=== PATIENT | female | born 1955 | race Caucasian/White ===

== ENCOUNTER 2017-10-24 11:07 | Emergency (ER) | payer BC ==
[2017-10-24] MEDS ORDERED: ONDANSETRON ODT 8 MG TAB ONE (11:12)
[2017-10-24] MEDS ORDERED: MORPHINE SULFATE INJ 10 MG/ML VIAL ONE (11:16)
[2017-10-24] MEDS ORDERED: SUCRALFATE 1 GM/10 ML 1 GM UD PO ONE (11:17)
[2017-10-24] MEDS ORDERED: ONDANSETRON ODT 8 MG TAB SL ONE (11:17)
[2017-10-24] MEDS ORDERED: PROMETHAZINE HCL INJ 25 MG in SODIUM CHLORIDE 0.9% 50ML 50 ML IVPB ONE (11:17)
[2017-10-24] MEDS ORDERED: MORPHINE SULFATE INJ 10 MG/ML VIAL IV ONE (11:17)
[2017-10-24] MEDS ORDERED: PROMETHAZINE HCL INJ 25 MG/ML VIAL ONE (12:20)
[2017-10-24] MEDS ORDERED: SODIUM CHLORIDE 0.9% 50ML 50 ML ONE (12:20)
[2017-10-24] MEDS ORDERED: SUCRALFATE 1 GM/10 ML 1 GM UD ONE (12:23)
--- NOTE | 2017-10-24 12:33 | RAD ---
PROCEDURE: Abdomen Series Clinical History: abd pain, coffee ground emesis, liver dz Indication: Same as above Comparison: None Technique: 1.0 views of the abdomen and pelvis and 1.0 view of the chest were done. Findings: There is no gross evidence of free air in the abdomen or the pelvis . The small and large bowel gas pattern does not show any evidence of obstruction, ileus or bowel wall thickening. There is no visualization of radiopaque calculi in the outline of the urinary tract. The visualized lung cano are unremarkable. There is evidence of prior surgery in the visualized lower cervical spine Cardiomediastinal silhouette is unremarkable. Impression: There are no acute findings in the chest, abdomen and pelvis Location of Interpretation: [id number] Electronically signed by: Cecil Curry MD 10/24/2017 12:31 PM [facility] Workstation: [id number]
[2017-10-24] MEDS ORDERED: SODIUM CHLORIDE 0.9% 1000ML 500 ML IVS ONE ×2 (12:49→15:17)
[2017-10-24] MEDS ORDERED: SODIUM CHLORIDE 0.9% 1000ML 1,000 ML ONE ×2 (14:27→17:05)
[2017-10-24] MEDS ORDERED: diphenhydrAMINE HCL 12.5 MG/5 ML UD PO ONE (14:42)
[2017-10-24] MEDS ORDERED: methylPREDNISolone SODIUM SUC 40 MG/ML VIAL IV ONE (14:42)
[2017-10-24] MEDS ORDERED: PANTOPRAZOLE SODIUM IV 40 MG VIAL IV ONE (15:06)
--- NOTE | 2017-10-24 15:09 | ED.PDOC ---
History of Present Illness - General Time Seen by Provider: 10/24/17 11:17 Source: patient Exam Limitations: no limitations - History of Present Illness Initial Comments: the patient is a 62-year-old female brought in by her family member secondary to severe abdominal pain with some coffee ground emesis. The patient has apparently been having some abdominal pain and vomiting for the better part of the night. No fevers. This has happened before. 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 She has apparently been treated for the hepatitis C according to family members. She apparently does have some chronic ascites for which she takes diuretics and also some hepatic encephalopathy for which she takes rifaximin. She sees a Dr. Rojas at [facility] in [place]. She has had multiple upper GI bleeds in the past that had to be worked on. She has been unable to take numerous of her chronic pain medications overnight and is obviously having some withdrawals as well. She has been unable to take her metoprolol as well. Timing/Duration: 24 hours Severity: moderate Improving Factors: nothing Worsening Factors: nothing Associated Symptoms: loss of appetite, malaise, nausea/vomiting, weakness Review of Systems - Review of Systems Constitutional: States: malaise EENTM: States: no symptoms reported Respiratory: States: no symptoms reported Cardiology: States: no symptoms reported Gastrointestinal/Abdominal: States: abdominal pain, nausea, vomiting Genitourinary: States: no symptoms reported Musculoskeletal: States: no symptoms reported Skin: States: no symptoms reported Neurological: States: other - the patient is drowsy possibly from mild hepatic encephalopathy but also likely because she was at the better part of the night Endocrine: States: excessive sweating All other Systems: No Change from Baseline Physical Exam - Physical Exam General Appearance: Other - the patient is drowsy. She is rolling around on the bed holding her abdomen. She is very anxious. She does understand what's going on and recognizes her family members. She is a little bit confused on the date. Eye Exam: bilateral normal Ears, Nose, Throat: hearing grossly normal, normal ENT inspection, normal pharynx Neck: full range of motion, supple Respiratory: normal breath sounds, no respiratory distress, no accessory muscle use Cardiovascular/Chest: normal peripheral pulses, no edema, tachycardia - sinus tachycardia Peripheral Pulses: radial,right: 2+, radial,left: 2+, dorsalis pedis,right: 2+, dorsalis pedis,left: 2+ Gastrointestinal/Abdominal: soft, other - the patient does have some epigastric discomfort palpation. No definite rebound or peritoneal signs. Rectal Exam: deferred Back Exam: other - the patient has no new back pain. Extremity: normal range of motion, non-tender, no pedal edema, no calf tenderness, normal capillary refill Neurologic: sap portal developer II-XII nml as tested, alert, normal mood/affect - with the exception that she is drowsy and anxious Skin Exam: normal color Progress - Progress Progress: 10/24/17 15:17 the patient is a 62-year-old female presenting to the emergency room secondary to nausea and vomiting with coffee-ground emesis throughout the night. she does have a significant history of end-stage liver disease with frequent upper GI bleeds in the past. The patient does appear to be having a small upper GI bleed based on her blood work and history anyway. The patient also was in withdrawal from not having her opiate pain medications. She is doing much better after a dose of anti-emetics and a dose of opiate pain medications. She has not thrown up since her arrival here. she received a dose of Carafate, Protonix and Maalox. Her hemoglobin and hematocrit have dropped slightly however inappropriately since her arrival. 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 The patient is stable at this time. We were planning on giving the patient 1 unit of packed red blood cells however due to a malfunction of laboratory equipment we are unable to type and match blood specifically to her. This will need to be done at the receiving facility. The patient will be receiving a little more IV fluids. Transfer for higher level of care and GI evaluation. Family has been consulted and informed. - Results/Orders Results/Orders: Laboratory Tests 10/24/17 10/24/17 10/24/17 11:24 11:24 11:24 WBC 11.5 H RBC 2.46 L Hgb 8.6 L Hct 25.2 L MCV 102.6 H MCH 34.9 H MCHC 34.3 RDW 13.5 Plt Count 171 MPV 9.2 Absolute Neuts (auto) 8.90 H Absolute Lymphs (auto) 1.90 Absolute Monos (auto) 0.60 Absolute Eos (auto) 0.00 Absolute Basos (auto) 0.10 Neutrophils % 77.6 Lymphocytes % 16.4 L Monocytes % 5.4 Eosinophils % 0.1 L Basophils % 0.5 PT 13.7 H INR 1.210 PTT (SP) 29.3 Sodium 142 Potassium 4.4 Chloride 109 Carbon Dioxide 21 Anion Gap 16.4 BUN 37 H Creatinine 0.68 BUN/Creatinine Ratio 54.4 H Random Glucose 133 H Serum Osmolality 293.7 Calcium 9.7 Magnesium 1.9 Total Bilirubin 0.7 AST 36 ALT 29 Alkaline Phosphatase 65 Creatine Kinase 156 H CK-MB (CK-2) 4.2 CK-MB (CK-2) % 2.69 Troponin I 0.03 Serum Total Protein 6.1 L Albumin 3.2 Globulin 2.9 Albumin/Globulin Ratio 1.1 Amylase 32 Lipase 33 Crossmatch 10/24/17 10/24/17 14:26 15:05 WBC 11.4 H RBC 2.27 L Hgb 8.0 L Hct 22.9 L MCV 100.9 H MCH 35.2 H MCHC 34.9 RDW 13.2 Plt Count 164 MPV 8.8 Absolute Neuts (auto) 9.20 H Absolute Lymphs (auto) 1.50 Absolute Monos (auto) 0.50 Absolute Eos (auto) 0.00 Absolute Basos (auto) 0.10 Neutrophils % 81.1 H Lymphocytes % 13.5 L Monocytes % 4.8 Eosinophils % 0.0 L Basophils % 0.6 PT INR PTT (SP) Sodium Potassium Chloride Carbon Dioxide Anion Gap BUN Creatinine BUN/Creatinine Ratio Random Glucose Serum Osmolality Calcium Magnesium Total Bilirubin AST ALT Alkaline Phosphatase Creatine Kinase CK-MB (CK-2) CK-MB (CK-2) % Troponin I Serum Total Protein Albumin Globulin Albumin/Globulin Ratio Amylase Lipase Crossmatch See Detail acute abdominal series shows no acute pathology. No obstruction. No ileus. No free air. EKG showssinus tachycardia rate 148 bpm. The patient is agitated during this and when she relaxes it does slow down to the 120s. No acute ST segment changes definitive for ischemia. Normal axis. Departure - Departure Clinical Impression: Acute upper GI bleed, Opiate withdrawal Disposition: Transfer to Hospital Transfer to Outside Facility - Transfer Information Accepting Provider:: dr lackey Accepting Facility: [facility] Reason for Transfer: required specialist not available
[2017-10-24 16:03] VITALS: TEMP 97.9
[2017-10-24] MEDS ORDERED: methylPREDNISolone SODIUM SUC 40 MG/ML VIAL ONE (17:04)
[2017-10-24] MEDS ORDERED: PANTOPRAZOLE SODIUM IV 40 MG VIAL ONE (17:05)
[2017-10-24 18:16] VITALS: BP 126/65; O2SAT 98
== END 2017-10-24 17:20 | disposition short-term general hospital (02) ==
LOC: ER 11:07
DX: K92.2 Gastrointestinal hemorrhage, unspecified (principal); F11.23 Opioid dependence with withdrawal; R00.0 Tachycardia, unspecified; K74.60 Unspecified cirrhosis of liver; B19.20 Unspecified viral hepatitis C without hepatic coma
CPT/HCPCS: 36415; 74020; 80053; 82140; 82150; 82550; 82553; 83690; 83735; 84484; 85025; 85610; 85730; 93005; A4216; J1030; J2270; J2550; J7030

== ENCOUNTER → 2017-11-17 | Outpatient (CLI) | payer BC | END | disposition home or self-care (01) | LOC: LAB.O 12:02 | PROVIDERS: ATTEND Internal Medicine Hepatology | DX: I85.01 Esophageal varices with bleeding (principal); K70.30 Alcoholic cirrhosis of liver without ascites ==

== ENCOUNTER → 2017-11-27 | Outpatient (CLI) | payer BC ==
--- NOTE | 2017-11-30 08:15 | MRI ---
EXAM DESCRIPTION: Abdomen w/wo Contrast CLINICAL HISTORY: 62 years Female, CIRRHOSIS COMPARISON: None. TECHNIQUE: Multiplanar multisequence examination of the abdomen before contrast enhancement with multiphase contrast enhanced examination of the liver. FINDINGS: Precontrast imaging demonstrates modest enlargement of the lateral segment left lobe of the liver with a nodular heterogeneous appearance of the right lobe of the liver with mild abdominal ascites surrounding the liver and gallbladder fossa. Liver is inhomogeneous with the area adjacent to the gallbladder demonstrating lower signal intensity on fat saturated imaging and higher signal intensity on non fatsaturated imaging suggesting focal fatty sparing of this region of the liver. Postcontrast there is slight heterogeneous enhancement within the liver but a focal arterial enhancing mass to strongly suggest or confirm a hepatocellular carcinoma is not identified. Correlation with tumor markers including a serum alpha-fetoprotein is recommended. Mild splenomegaly is present with no significant ascites noted in the left upper quadrant. The pancreas arterially enhances without focal mass. Normal enhancement of the kidneys and spleen is noted and the adrenal glands are small and normal. The splenic vein and portal vein and superior mesenteric vein are confirmed patent. Significant abdominal or esophageal varices are not identified. Retroperitoneal adenopathy is not apparent. IMPRESSION: 1. Cirrhosis of the liver with abnormal architecture and heterogeneity with macrolobulation of the right lobe and mild enlargement of the left lobe and mild upper abdominal ascites. 2. Mild splenomegaly. 3. A focal arterial enhancing mass within the liver on multiphase enhanced examination to suggest hepatocellular carcinoma is not identified. Correlation with tumor markers and serum alpha-fetoprotein is recommended. 4. Heterogeneous liver with apparent focal fatty sparing adjacent to the gallbladder fossa in the right lobe of the liver. Patency of the portal vein and splenic vein and superior mesenteric vein. Electronically signed by: Silvestre Causey MD 11/30/2017 8:14 AM JUNIOR ACCOUNT MANAGER
== END ==
LOC: MRI 08:06
PROVIDERS: ATTEND Internal Medicine Hepatology
DX: K70.30 Alcoholic cirrhosis of liver without ascites (principal); R16.1 Splenomegaly, not elsewhere classified; R16.0 Hepatomegaly, not elsewhere classified

== ENCOUNTER 2017-12-19 18:31 | Emergency (ER) | payer BC ==
--- NOTE | 2017-12-19 18:53 | ED.PDOC ---
History of Present Illness - General Chief Complaint: GI Problem Stated Complaint: vomiting Time Seen by Provider: 12/19/17 18:52 Source: patient Exam Limitations: no limitations - History of Present Illness Initial Comments: Justin Loyd 62 y/o female stated she had coffee ground emesis about 1630 hour today at home.She has history of esophageal varices from hep c cirrhosis which she had undergone treatment as well as history of alcoholism and had been sober the last 3 years.Had EGD done by Dr. Rojas 11/19/2017. Timing/Duration: 4-6 hours Severity: moderate Improving Factors: nothing Worsening Factors: nothing Associated Symptoms: nausea/vomiting Allergies/Adverse Reactions: Allergies NO KNOWN ALLERGY Allergy (Verified 12/19/17 18:54) Review of Systems - Review of Systems Constitutional: States: no symptoms reported EENTM: States: no symptoms reported Respiratory: States: no symptoms reported Cardiology: States: no symptoms reported Gastrointestinal/Abdominal: States: see HPI Genitourinary: States: no symptoms reported Musculoskeletal: States: no symptoms reported Skin: States: no symptoms reported Hematologic/Lymphatic: States: see HPI, anemia All other Systems: Reviewed and Negative, No Change from Baseline Past Medical History (General) - Patient Medical History Hx Stroke: No Hx Congestive Heart Failure: No Hx Hypertension: Yes Hx Gastroesophageal Reflux: Yes Hx Hepatitis C: Yes Hx Other PMH: Yes - esophageal varices Surgical History: other - spine-neck/lumbar; - Vaccination History Hx Influenza Vaccination: - unknown Hx Pneumococcal Vaccination: - unknown - Social History Hx Tobacco Use: Yes Hx Alcohol Use: Yes - Sober since 2013 Family Medical History - Family History Mother Family History: No Known Living Status: Still Living Hx Family Diabetes: Yes - mom Physical Exam - Physical Exam General Appearance: Alert, Comfortable, No apparent distress Eye Exam: bilateral normal Ears, Nose, Throat: hearing grossly normal, normal ENT inspection Neck: non-tender, full range of motion, supple Respiratory: lungs clear, normal breath sounds, no respiratory distress Cardiovascular/Chest: regular rate, rhythm, no murmur Peripheral Pulses: radial,right: 2+, radial,left: 2+ Gastrointestinal/Abdominal: non tender, soft, no organomegaly Rectal Exam: other - had tarry stool when she had bm noted by the nurse Extremity: non-tender, no pedal edema, no calf tenderness Neurologic: alert, oriented x 3 Skin Exam: normal color Lymphatic: no adenopathy Progress - Progress Progress: 12/19/17 20:34 Last Vital Signs Temp 97.9 F 12/19/17 20:00 Pulse 90 12/19/17 20:00 Resp 18 12/19/17 20:00 BP 123/79 12/19/17 20:00 Pulse Ox 99 12/19/17 20:00 12/20/17 00:40 Discuss needing for emergency blood transfusion on the patient and agreed with plan - Results/Orders Results/Orders: 12/19/17 19:00 EKG STAT 12/19/17 20:30 Octreotide Acetate [SandoSTATIN] 500 mcg Sodium Chloride 0.9% 100Ml [NS (NACL 0.9%) 100ml] 100 ml IVPB PRN 12/19/17 22:06 AMMONIA Stat Laboratory Results - last 24 hr 12/19/17 12/19/17 12/19/17 17:15 19:20 19:20 WBC 9.4 RBC 2.80 L Hgb 9.4 L Hct 27.9 L MCV 99.9 H MCH 33.5 H MCHC 33.5 RDW 16.0 H Plt Count 198 MPV 9.0 Absolute Neuts (auto) 7.10 H Absolute Lymphs (auto) 1.60 Absolute Monos (auto) 0.70 Absolute Eos (auto) 0.00 Absolute Basos (auto) 0.00 Neutrophils % 75.2 Lymphocytes % 17.1 L Monocytes % 7.1 Eosinophils % 0.2 L Basophils % 0.4 PT 14.0 H INR 1.240 PTT (SP) 29.1 Sodium 140 Potassium 4.6 Chloride 111 Carbon Dioxide 21 Anion Gap 12.6 BUN 38 H Creatinine 0.59 L BUN/Creatinine Ratio 64.4 H Random Glucose 109 H Serum Osmolality 289.0 Calcium 10.0 Magnesium 1.9 Total Bilirubin 0.9 Direct Bilirubin 0.2 Indirect Bilirubin 0.7 AST 32 ALT 30 Alkaline Phosphatase 73 Creatine Kinase 83 CK-MB (CK-2) 2.6 CK-MB (CK-2) % Not Reportable Troponin I 0.04 Serum Total Protein 6.5 Albumin 3.2 Lipase 35 Urine Color Yellow Urine Appearance Clear Urine pH 5.0 Ur Specific [place] 1.010 Urine Protein Negative Urine Glucose (UA) Negative Urine Ketones Negative Urine Blood Negative Urine Nitrite Negative Urine Bilirubin Negative Urine Urobilinogen 0.2 Ur Leukocyte Esterase Negative Urine RBC 0-1 Urine WBC 0-1 Ur Epithelial Cells 0-1 Urine Bacteria 0 Urine Mucus Trace Patient ABO/Rh A POSITIVE Antibody Screen Negative - EKG/XRAY/CT EKG: Sinus, nonspecific ST T wave Chg Comments: HR- 87 XRAY: abdomen - no acute abnormality Departure - Departure Clinical Impression: Anemia due to acute blood loss Esophageal varix bleeding Qualifiers: Esophageal varices type: secondary Qualified Code(s): I85.11 - Secondary esophageal varices with bleeding Hepatic cirrhosis Qualifiers: Hepatic cirrhosis type: unspecified hepatic cirrhosis Ascites presence: without ascites Qualified Code(s): K74.60 - Unspecified cirrhosis of liver Hematemesis/vomiting blood Qualifiers: Nausea presence: without nausea Qualified Code(s): K92.0 - Hematemesis Time of Disposition: 00:40 Disposition: Transfer to Hospital Condition: Fair Departure Forms: Patient Portal Self Enrollment Transfer to Outside Facility - Transfer Information Accepting Facility: [facility] Reason for Transfer: required specialist not available
[2017-12-19] MEDS ORDERED: SODIUM CHLORIDE 0.9% 1000ML 1,000 ML IVS ONE (18:56)
--- NOTE | 2017-12-19 19:53 | RAD ---
EXAM DESCRIPTION: Abdomen Flat Upright (accession [id number]), Chest,1 View (accession [id number]) CLINICAL HISTORY: vomiting COMPARISON: None FINDINGS: Frontal view of the chest and supine and upright images of the abdomen were submitted. Cardiac silhouette is within normal limits. There is no focal parenchymal or pleural disease. There is no free air in the abdomen. There is no evidence of bowel obstruction. IMPRESSION: No acute abnormalities. Electronically signed by: Demarco Madison MD 12/19/2017 7:51 PM CRAFT MANAGER
--- NOTE | 2017-12-19 19:53 | RAD ---
EXAM DESCRIPTION: Abdomen Flat Upright (accession [id number]), Chest,1 View (accession [id number]) CLINICAL HISTORY: vomiting COMPARISON: None FINDINGS: Frontal view of the chest and supine and upright images of the abdomen were submitted. Cardiac silhouette is within normal limits. There is no focal parenchymal or pleural disease. There is no free air in the abdomen. There is no evidence of bowel obstruction. IMPRESSION: No acute abnormalities. Electronically signed by: Demarco Madison MD 12/19/2017 7:51 PM BARN[employer]
[2017-12-19] MEDS ORDERED: ONDANSETRON INJ 4 MG/2 ML VIAL IV ONE (20:30)
[2017-12-19] MEDS ORDERED: OCTREOTIDE ACETATE 500 MCG in SODIUM CHLORIDE 0.9% 100ML 100 ML IVPB SCH (20:30)
[2017-12-19] MEDS ORDERED: PANTOPRAZOLE SODIUM IV 40 MG VIAL IV ONE (20:30)
[2017-12-19] MEDS ORDERED: SODIUM CHLORIDE 0.9% 500ML 500 ML IVS ONE (20:31)
[2017-12-19] MEDS ORDERED: OCTREOTIDE ACETATE 100 MCG/ML VIAL ONE ×2 (21:00→21:07)
[2017-12-19] MEDS ORDERED: SODIUM CHLORIDE 0.9% 100ML 100 ML IVPB ONE (21:07)
[2017-12-19] MEDS ORDERED: LACTULOSE SYRUP 20 GM/30 ML UD PO ONE (23:16)
[2017-12-20] MEDS ORDERED: diphenhydrAMINE HCL 50 MG/ML VIAL IV ONE (00:30)
[2017-12-20] MEDS ORDERED: SODIUM CHLORIDE 0.9% 1000ML 1,000 ML ONE (00:32)
[2017-12-20 00:52] VITALS: TEMP 99.6
[2017-12-20 00:54] VITALS: O2SAT 97
[2017-12-20 01:40] VITALS: BP 120/50
== END 2017-12-20 01:15 | disposition short-term general hospital (02) ==
LOC: ER 18:31
DX: K74.60 Unspecified cirrhosis of liver (principal); I85.11 Secondary esophageal varices with bleeding; D50.0 Iron deficiency anemia secondary to blood loss (chronic); I10 Essential (primary) hypertension
CPT/HCPCS: 36415; 71045; 74019; 80048; 80076; 81001; 82140; 82550; 82553; 83690; 84484; 85014; 85018; 85025; 85610; 85730; 86850; 86900; 86901; 86922; 93005; J1200; J2060; J2354; J2405; J7030; J7040; J7050; P9016

== ENCOUNTER → 2018-05-28 | Outpatient (CLI) | payer BC, OTHER ==
--- NOTE | 2018-06-23 16:55 | MRI ---
EXAM DESCRIPTION: Lumbar Spine w/o Contrast : Magnetic Resonance Imaging. CLINICAL HISTORY: CHRONIC LOW BACK PAIN COMPARISON: None available. TECHNIQUE: Multiplanar, multiple standard sequences, non contrast MRI, lumbar spine. Note: Interpretation delayed until today due to inadvertent cancellation of the order in the RIS. FINDINGS: Diffuse marrow reconversion from fatty to cellular marrow involving the lumbar spine and included sacrum. L5-S1: Grade 1 anterolisthesis with disc desiccation and disc space loss. Bilateral Modic type II endplate reactive changes. Posterior broad-based disc bulge impressing on the thecal sac. Minimal narrowing of the bilateral subarticular recesses. Partial fusion of the right facet joint with arthrosis in the left joint. Minimal hypertrophy of the bilateral flavum ligaments. Moderate narrowing of the left foramen and borderline stenosis of the right foramen. AP canal diameter 6 mm. Bilateral deformity of the pars interarticularis, more left than right. L4-5: Disc desiccation and minimal narrowing of the posterior space. Posterior broad-based 4 mm bulge of the disc abutting the thecal sac and the bilateral hypertrophied flavum ligaments. Minimal bilateral facet arthrosis. AP canal diameter 8 mm. Bilateral moderate foraminal narrowing. Minimal narrowing of the bilateral subarticular recesses. L3-4: Disc desiccation with disc space maintained. Posterior broad-based 4 to 5 mm disc bulge abutting the bilateral facet joints. Hypertrophy flavum ligaments abutting the posterior thecal sac with AP canal diameter 8 mm. Minimal narrowing of the bilateral subarticular recesses. Bilateral mild facet arthrosis. Bilateral mild to moderate foraminal narrowing L2-3: Minimal disc desiccation and tiny posterior bulge. Bilateral flavum ligament hypertrophy. Ligaments are abutting the posterior thecal sac with AP canal diameter 11 mm. Bilateral foramina are patent. L1-2: Minimal disc desiccation with no posterior bulge. Bilateral hypertrophied flavum ligaments abutting the posterior thecal sac. Mild to moderate canal narrowing. Facets are unremarkable. Bilateral foramina are patent. T12-L1: Normal signal in the disc and disc space preserved. Canal and foramina are patent. Posterior elements unremarkable. Schmorl's node in the superior T12 vertebral body with no significant marrow edema. T11-12 disc bulge almost abutting the cord. Bilateral T11-12 foraminal narrowing. Minimal mid lumbar dextroscoliosis. Paravertebral soft tissues minimal muscle atrophy and fatty replacement.. Vertebral bodies are not compressed at any level. IMPRESSION: 1. L5-S1 grade 1 anterolisthesis with bilateral L5 pars interarticulares deformity possibly spondylolysis. Posterior broad-based disc bulge impressing on the thecal sac. 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 This can result in abnormal biomechanics and be a source of low back pain. Moderate to severe canal stenosis. 2. Posterior broad-based L4-5 disc bulge. Minimal facet arthrosis. Mild to moderate canal stenosis. 3. Posterior broad-based L3-4 disc bulge with mild to moderate canal stenosis. Bilateral mild to moderate foraminal narrowing. Electronically signed by: Aly Ham MD 06/23/2018 4:53 PM CDT
== END ==
LOC: MRI 11:35
PROVIDERS: ATTEND General Practice
DX: M51.26 Other intervertebral disc displacement, lumbar region (principal); M43.17 Spondylolisthesis, lumbosacral region

== ENCOUNTER → 2018-06-07 | Outpatient (CLI) | payer BC, OTHER ==
--- NOTE | 2018-06-07 14:59 | US ---
EXAM DESCRIPTION: Abdomen,Complete CLINICAL HISTORY: cirrhosis COMPARISON: None Available. TECHNIQUE: Complete abdominal ultrasound FINDINGS: Visualized portions of the pancreas are unremarkable. No peripancreatic fluid. Bowel gas obscures some areas. Normal caliber of the aorta. Normal appearance of the inferior vena cava. Liver parenchyma is homogeneous in texture with normal echogenicity. No liver mass or intrahepatic bile duct dilatation. Lobulated surface of the liver is noted raising the question of scarring or cirrhosis. Correlate with other studies. Normal appearance of hepatic veins and portal vein. Gallbladder appears normal with no intraluminal stones. No gallbladder wall thickening. Common bile duct is normal in caliber measuring 6.4 mm. The right kidney measures 9.2 cm in length. Normal renal cortical echogenicity. The renal cortical thickness appears somewhat decreased at the upper pole. No right renal mass, shadowing stone or cyst. There is no hydronephrosis. Spleen is normal in size. No focal splenic lesion. The left kidney measures 9.8 cm in length. Normal renal cortical echogenicity. The renal cortical thickness appears normal. No left renal mass, shadowing stone or cyst. There is no hydronephrosis. IMPRESSION: Lobulated surface of the liver consistent with the clinical diagnosis of cirrhosis. Electronically signed by: Charles Whitt MD 06/07/2018 2:58 PM CDT
== END ==
LOC: US 08:59
PROVIDERS: ATTEND Internal Medicine Hepatology
DX: K70.30 Alcoholic cirrhosis of liver without ascites (principal); N28.9 Disorder of kidney and ureter, unspecified; E55.9 Vitamin D deficiency, unspecified; D64.9 Anemia, unspecified; I85.10 Secondary esophageal varices without bleeding

== ENCOUNTER → 2018-09-16 | Outpatient (CLI) | payer BC, OTHER | LOC: LAB.O 17:39 | PROVIDERS: ATTEND Internal Medicine Hepatology | DX: K70.30 Alcoholic cirrhosis of liver without ascites (principal) ==

== ENCOUNTER → 2018-12-15 | Outpatient (CLI) | payer BC, MEDICARE | LOC: LAB.O 08:47 | PROVIDERS: ATTEND Internal Medicine Hepatology | DX: K70.30 Alcoholic cirrhosis of liver without ascites (principal); I85.10 Secondary esophageal varices without bleeding; D64.9 Anemia, unspecified; N28.9 Disorder of kidney and ureter, unspecified; E55.9 Vitamin D deficiency, unspecified ==

== ENCOUNTER → 2018-12-27 | Outpatient (CLI) | payer BC, MEDICARE ==
--- NOTE | 2018-12-27 16:55 | US ---
EXAM DESCRIPTION: Abdomen,Complete: Ultrasound. CLINICAL HISTORY: CIRRHOSIS OF LIVER, RENAL INSUFFICIENCY COMPARISON: None Available. TECHNIQUE: Transabdominal scannin-dimensional and Doppler modes. FINDINGS: Gallbladder: Normal size with no intraluminal stones or sludge. Normal wall thickness 1 mm no edema. Nontender with transducer pressure. Common bile duct: 4 mm normal caliber. Liver: Decreased coarse dense heterogeneous echoes. Capsule is lobulated. Long axis of the right lobe 15.7 cm. Left lobe extends well into the left upper quadrant. Normal direction of flow of the hepatic vein and portal vein. No duct dilation. No ascites. Pancreas: Included segments with normal echogenicity. Duct not seen.. Abdominal aorta: Normal caliber from the proximal segment to the distal bifurcation. IVC: visualized; normal caliber. Spleen normal echogenicity; long axis measurement is 8.1 cm. No ascites in the lower quadrants of the abdomen. Kidneys were not evaluated. Right kidney: Long axis is 9.2 cm. Increased echogenicity, less than the liver. Cortical thickness 12 mm. No hydronephrosis. Prominent renal pyramids. Left kidney: 9.4 cm Long axis. Increased echogenicity. Cortical thickness 13 mm. No hydronephrosis. Prominent renal pyramids. IMPRESSION: 1. Enlarged liver with lobulated capsule and overall low-density consistent with subacute cirrhosis. No intrahepatic dilation. Vascularity normal direction. No enlarged ducts. No ascites. 2. Pancreas, gallbladder, and common bile duct unremarkable. Spleen is negative. 3. Appearance of kidneys consistent with clinical history. No hydronephrosis. Electronically signed by: Aly Ham MD 12/27/2018 4:52 PM HEAD OF ADVERTISING
--- NOTE | 2018-12-27 17:03 | US ---
EXAM DESCRIPTION: Doppler,Abdomen: ULTRASOUND. CLINICAL HISTORY: 63 years Female CIRRHOSIS COMPARISON: Grayscale ultrasound of the abdomen on this visit. TECHNIQUE: Transcutaneous scanning: Doppler modes. FINDINGS: Flow in the left hepatic vein is hepatofugal with RI of 0.22. Flow in the main hepatic vein is hepatofugal with RI 1.0. Flow in the right hepatic vein was hepatofugal but not measured. Flow in the portal vein was hepatopedal with RI 0.07. IMPRESSION: Flow in the hepatic and portal veins is in the correct physiologic direction. Electronically signed by: Aly Ham MD 12/27/2018 5:00 PM [facility]
== END ==
LOC: US 09:00
PROVIDERS: ATTEND Internal Medicine Hepatology
DX: K70.30 Alcoholic cirrhosis of liver without ascites (principal); I85.10 Secondary esophageal varices without bleeding; N28.9 Disorder of kidney and ureter, unspecified

== ENCOUNTER → 2019-05-31 | Outpatient (CLI) | payer MEDICARE, OTHER | LOC: GMAE 19:50 | PROVIDERS: ATTEND Family Medicine | DX: M25.561 Pain in right knee (principal); M25.562 Pain in left knee; G25.81 Restless legs syndrome ==

== ENCOUNTER → 2019-06-10 | Outpatient (CLI) | payer MEDICARE, OTHER ==
--- NOTE | 2019-06-10 13:59 | US ---
EXAM DESCRIPTION: Abdomen,Complete: Ultrasound. CLINICAL HISTORY: CIRRHOSIS OF LIVER,RENAL INSUFFICIENCY COMPARISON: Complete abdominal ultrasound 01/24/2019. TECHNIQUE: Transabdominal scanning: grayscale and Doppler modes. FINDINGS: Gallbladder: Normal size. No intraluminal stones or sludge. Wall thickness 1.7 cm normal with no surrounding fluid. Nontender with transducer pressure. Common bile duct: 4.1 mm normal caliber. Liver: Increased echogenicity. Lobulated capsule. Long axis of right lobe 14.5 cm. Normal caliber portal vein and normal direction of flow. No Pancreas: Normal echogenicity. Pancreatic duct not seen.. Abdominal aorta: Normal caliber from the proximal segment to the distal bifurcation. IVC: visualized; normal caliber. Spleen normal echogenicity; long axis measurement is 9.9 cm. Right kidney: 9.2 cm long axis. 10 mm cortical thickness with increased echogenicity less than that of the liver. No hydronephrosis, no echogenic stones, no perirenal fluid. Left kidney: 9.4 cm long axis with 13 mm cortical thickness. Increased echogenicity, less than that of the liver. No hydronephrosis, no echogenic stones, no perirenal fluid. IMPRESSION: 1. Cirrhotic liver not enlarged with typical appearance of the capsule for this disease. Ducts caliber normal and normal caliber and flow direction of the portal vein. No ascites. 2. Minimal ultrasound appearance of the gallbladder, common bile duct, pancreas, and spleen. IVC and abdominal aorta normal caliber. 3. Bilateral kidneys are small with cortical thinning and increased echogenicity, less than that of the liver. Most likely chronic renal disease. No hydronephrosis. Electronically signed by: Aly Ham MD 06/10/2019 1:57 PM CDT
== END ==
LOC: US 08:45
PROVIDERS: ATTEND Internal Medicine Hepatology
DX: K74.69 Other cirrhosis of liver (principal); N28.9 Disorder of kidney and ureter, unspecified

== ENCOUNTER → 2019-09-06 | Outpatient (CLI) | payer OTHER ==
--- NOTE | 2019-09-08 09:31 | MRI ---
EXAM DESCRIPTION: Lumbar Spine w/wo Contrast: Magnetic Resonance Imaging. CLINICAL HISTORY: radiculopathy COMPARISON: MRI scan lumbar spine without contrast 28 May 2018. TECHNIQUE: Multiplanar, MRI, multiple standard sequences, without and with 5 kg/mL Gadolinium IV contrast, lumbar spine. No adverse reactions. FINDINGS: L5-S1: Disc desiccation and disc space loss. Anterior and bilateral moderate endplate reactive changes. Minimal enhancement in the posterior midline disc. Posterior tiny disc bulge. Grade 1 anterolisthesis 2 to 3 mm is stable. AP canal diameter 5.5 mm stable since the prior study. Hypertrophic left facet arthrosis and thickening of the ligament. Absence of the right facet joint and deformity of the right lamina and adjacent soft tissues is again noted. This enhancement is posterior to the exiting right L5 nerve, above the anterior right sacrum, in the foramen which is stenotic. Disc osteophyte complex encroaching on the left foramen which is moderately narrowed with no abnormal enhancement. Bilateral narrowing of the subarticular recesses abutting the bilateral S1 nerves. Circumscribed hyperintense T1 and T2 posterior hemangioma L5. Stable since the prior study. L4-L5: Minimal disc desiccation with disc space preserved. Posterior broad-based disc bulge 5 mm. Bilateral hypertrophic facet arthrosis more on the left with ligament thickening impressing on the bilateral thecal sac more on the left. AP canal diameter 8 mm. Minimal enhancement in the facets. Moderate endplate reaction anterior right. Stable since the prior study. Moderate right foraminal narrowing and moderate to severe left foraminal narrowing. No other abnormal enhancement. Circumscribed hyperintense T1 and T2 hemangioma posterior L4 vertebral body stable. L3-L4: Disc desiccation and minimal narrowing of the posterior space. Tiny posterior bulge. Trace retrolisthesis. Bilateral mild facet arthrosis and ligament thickening with narrowing of the transverse canal diameter. AP canal diameter 8 mm. Bilateral mild foraminal narrowing. No abnormal contrast enhancement. Hyperintensity circumscribed T1 and T2 hemangioma posterior L3 vertebral body stable. L2-L3: Disc desiccation minimal with disc space preserved. No significant disc bulge. Posterior mild hypertrophic facet arthrosis and ligament thickening. AP canal diameter 11 to 12 mm. Mild bilateral foraminal narrowing. No abnormal contrast enhancement. Small typical hemangioma in the L2 vertebral body. No change since the prior study. L1-L2: Normal signal in the disc and disc space preserved. Anterior on the moderate endplate reactive changes. Posterior elements unremarkable. Canal and foramina are patent. Normal contrast enhancement. Stable since the prior study. T12-L1: Normal signal in the disc and disc space preserved. Posterior elements unremarkable. Canal and foramina are patent. Conus terminates at this level. Normal contrast enhancement. No change since the prior study. No significant scoliosis. Included cord and conus with normal signal, size, and enhancement. Vertebral bodies are not compressed at any level. Heterogeneous marrow signal again seen in the vertebral bodies and the posterior elements. No change from the prior study. No other abnormal Contrast enhancement. Paravertebral soft tissues negative..Perivertebral contrast enhancement normal. Except as otherwise noted. IMPRESSION: 1. 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 No mass. Enhancing tissue in the posterior right foramen abutting the exiting right L5 nerve. Minimal enhancement in the right posterior disc and the anterior left disc. No endplate enhancement. Severe central canal stenosis and effacement of the bilateral subarticular recesses abutting the descending S1 nerves. Correlate for radiculopathy bilateral L5 and/or bilateral S1 nerves. 2. Multifactorial mild to moderate central canal stenosis at L4-L5 stable since the prior study. Moderate right foraminal narrowing and moderate to severe left foraminal narrowing unchanged since the prior study. No abnormal enhancement. 3. Multifactorial central mild to moderate canal stenosis at L3-L4 stable since the prior study. No abnormal enhancement. Electronically signed by: Aly Ham MD 09/07/2019 12:46 PM [facility]
== END ==
LOC: LAB.O 13:29
PROVIDERS: ATTEND Family Medicine
DX: M51.17 Intervertebral disc disorders with radiculopathy, lumbosacral region (principal); M51.16 Intervertebral disc disorders with radiculopathy, lumbar region; M48.062 Spinal stenosis, lumbar region with neurogenic claudication

== ENCOUNTER → 2019-11-30 | Outpatient (CLI) | payer OTHER ==
--- NOTE | 2019-12-01 10:17 | US ---
EXAM DESCRIPTION: Abdomen,Complete: Ultrasound. CLINICAL HISTORY: 64 years FemaleALCOHOLIC CIRRHOSIS OF LIVER W/O ASCITES COMPARISON: Most recent ultrasound abdomen scan June 2019. TECHNIQUE: Transabdominal scanning: grayscale and Doppler modes. FINDINGS: Gallbladder: Normal size and echogenicity with no intraluminal stones or sludge. Wall thickness 2.2 mm normal with no fluid. Nontender with transducer pressure. Common bile duct: 4.9 mm normal caliber. Liver: Coarse increased echoes. 13.9 cm long axis right lobe. No focal lesions. Lobulated capsule. Normal caliber of the ducts. Physiologic vascular flow. No ascites. Pancreas: Normal echogenicity and size with pancreatic duct not seen.. Abdominal aorta: Normal caliber from the proximal segment to the distal bifurcation. IVC: visualized; normal caliber. Spleen normal echogenicity; long axis measurement is 9.7 cm. Right kidney: 9.9 cm long axis. Cortical thickness 11 mm with increased echogenicity, less than the liver. No echogenic stones or hydronephrosis. Left kidney: 9.7 cm long axis. 12 mm cortical thickness with increased echogenicity, less than the liver. No echogenic stones or hydronephrosis. IMPRESSION: 1. Liver has a cirrhotic appearance, slightly smaller than the prior study which may be related to technique. No ascites. Physiologic vascular flow. No dilated ducts. 2. Gallbladder, pancreas, spleen are unremarkable. Common bile duct, aorta, and IVC normal caliber. 3. Bilateral kidneys with increased cortical echogenicity and cortical thinning, similar to the prior study. Medical renal disease and/or age-related changes. Electronically signed by: Aly Ham MD 12/01/2019 10:16 AM [facility]
== END ==
LOC: LAB.O 07:45
PROVIDERS: ATTEND Internal Medicine Hepatology
DX: K70.30 Alcoholic cirrhosis of liver without ascites (principal); N28.9 Disorder of kidney and ureter, unspecified; I85.10 Secondary esophageal varices without bleeding; K72.90 Hepatic failure, unspecified without coma

== ENCOUNTER → 2020-02-07 | Outpatient (CLI) | payer OTHER | LOC: LAB.O 07:44 | PROVIDERS: ATTEND Internal Medicine Hepatology | DX: K70.30 Alcoholic cirrhosis of liver without ascites (principal); N28.9 Disorder of kidney and ureter, unspecified; I85.10 Secondary esophageal varices without bleeding; K72.90 Hepatic failure, unspecified without coma; F10.10 Alcohol abuse, uncomplicated ==

== ENCOUNTER → 2020-03-14 | Outpatient (CLI) | payer MEDICARE | LOC: LAB.O 16:21 | PROVIDERS: ATTEND Internal Medicine Hepatology | DX: K74.69 Other cirrhosis of liver (principal); N28.9 Disorder of kidney and ureter, unspecified; K70.30 Alcoholic cirrhosis of liver without ascites; I85.10 Secondary esophageal varices without bleeding ==

== ENCOUNTER → 2020-08-21 | Outpatient (CLI) | payer MEDICARE ==
--- NOTE | 2020-08-22 15:30 | RAD ---
EXAM DESCRIPTION: Chest,2 Views CLINICAL HISTORY: 65 years Female, SOB COMPARISON: None. TECHNIQUE: 2 view radiograph of the chest. IMPRESSION: Normal size cardiac silhouette. No lobar or masslike consolidation. No pleural effusion or pneumothorax. Thoracic spondylosis. Lower cervical fusion. Electronically signed by: Marty Smith MD 08/22/2020 3:29 PM CDT
== END ==
LOC: RAD 13:22
PROVIDERS: ATTEND Nurse Practitioner Adult Health
DX: K70.30 Alcoholic cirrhosis of liver without ascites (principal); R06.02 Shortness of breath; M47.894 Other spondylosis, thoracic region; M43.22 Fusion of spine, cervical region; K44.9 Diaphragmatic hernia without obstruction or gangrene

== ENCOUNTER → 2020-09-21 | Outpatient (CLI) | payer MEDICARE ==
--- NOTE | 2020-09-21 16:50 | MAM ---
EXAM DESCRIPTION: 3D Screening BILATERAL : Digital Mammography. CLINICAL HISTORY: 65 years Female SCREEN . No complaints. Mother with breast cancer. Unknown age. Menarche age unknown. Childbirth none. Menopause age 38. HRT 5 or more years ago.. Lifetime risk of developing breast cancer (Tyrer-Cuzick model)(%): 12.8. COMPARISON: Bilateral screening digital breast 2-D imaging April 2012. No prior reports available. TECHNIQUE: Bilateral CC and MLO projection full-field images, digital tomosynthesis mammographic technique. Bilateral digital 2-D full-field MLO images. CAD available for 2-D images. FINDINGS: The breast parenchymal density pattern is: Scattered areas of fibroglandular density. No skin thickening or nipple retraction. Solitary microcalcifications. Vascular calcifications. Increasing fatty replacement bilaterally. No new focal, stellate mass or density, focal asymmetry , and no suspicious microcalcifications bilaterally. IMPRESSION: Benign exam. BIRAD CATEGORY: 2 BENIGN FINDINGS. RECOMMENDATIONS: FOLLOW UP: Routine digital bilateral mammographic screening, one year interval from September 2020. Written communication explaining the IMPRESSION and follow-up, will be mailed to the patient and referring health care provider. According to the [employer], yearly mammograms are recommended starting at age 40 and continuing as long as a woman is in good health. Any breast change noted on a breast self-exam should be reported promptly to the patient's healthcare provider. Breast MRI is recommended for women with an approximately 20-25% or greater lifetime risk of breast cancer, including women with a strong family history of breast or ovarian cancer and women who have been treated for Hodgkin's disease. A negative mammographic report should not delay tissue diagnosis in patients with significant clinical history or physical findings. Extremely dense breast tissue limits the sensitivity of digital mammography. Electronically signed by: Aly Ham MD 09/21/2020 4:49 PM [facility]
== END ==
LOC: MAMMO 09:30
PROVIDERS: ATTEND Family Medicine
DX: Z12.31 Encounter for screening mammogram for malignant neoplasm of breast (principal)